=== PATIENT | female | born 1945 | race Caucasian/White ===

== ENCOUNTER 2018-01-06 08:52 | Emergency (ER) | payer MEDICARE, OTHER ==
[2018-01-06 09:05] VITALS: BP 111/67
--- NOTE | 2018-01-06 09:53 | XRAY Preliminary Report ---
Exam: XR FOOT 3 VIEW LT IMPRESSION: 1. Acute oblique nondisplaced fracture near the base of the third metatarsal. 2. 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 [facility] SITE ID: [id number]
--- NOTE | 2018-01-06 09:53 | XRAY Report ---
EXAM: LEFT FOOT RADIOGRAPHY EXAM DATE: 01/06/2018 09:27 AM. CLINICAL HISTORY: Left foot injury/pain. COMPARISON: None. TECHNIQUE: 3 nonweightbearing views. FINDINGS: Bones: The bones appear diffusely demineralized. There is an acute nondisplaced oblique fracture near the base of the third metatarsal. The remainder of visualized bones appear intact. Joints: No subluxation or dislocation. There is mild joint space narrowing and subchondral sclerosis at the first metatarsophalangeal joint. Soft Tissues: There is mild soft tissue swelling over the dorsum of the metatarsals. IMPRESSION: 1. Acute oblique nondisplaced fracture near the base of the third metatarsal. 2. 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 [facility] Referring Provider Line: [phone] SITE ID: [id number]
--- NOTE | 2018-01-06 10:01 | ED Physician Documentation ---
PD HPI LOWER EXT INJURY - Stated complaint Stated Complaint: FOOT PAIN - Chief complaint Chief Complaint: Ext Problem - History obtained from History obtained from: Patient, Family - History of Present Illness PD HPI LOW EXT INJURY LOCATION: Left, Foot Type of injury: Other (standing) Where injury occurred: Home Timing - onset: How many days ago (2) Timing - duration: Days (2) Timing - details: Abrupt onset, Still present Improved by: Rest, Immobilization Worsened by: Moving, Palpating Associated symptoms: Swelling, Discolored. No: Weakness Contributing factors: No: Anticoagulated Similar symptoms before: Diagnosis (broken foot) Recently seen: Not recently seen - Additional information Additional information: 72-year-old female who is traveling in a motor home with her was sitting at her table when she went to stand up she felt a sudden sharp severe pain in her midfoot. She has had trouble bearing weight on that foot she has had a similar fracture previously on the other foot. She does have known osteoporosis. Review of Systems Constitutional: denies: Fever Eyes: denies: Decreased vision Ears: denies: Ear pain Nose: denies: Congestion Respiratory: denies: Dyspnea, Cough Skin: denies: Rash Musculoskeletal: reports: Extremity pain, Pain with weight bearing. denies: Neck pain, Back pain Neurologic: denies: Generalized weakness, Focal weakness, Numbness PD PAST MEDICAL HISTORY - Past Medical History Past Medical History: Yes - Allergies Allergies/Adverse Reactions: Allergies Allergy/AdvReac Type Severity Reaction Status Date / Time No Known Drug Allergies Allergy Verified 01/06/18 09:02 - Social History Does the pt smoke?: No Smoking Status: Never smoker PD ED PE NORMAL - Vitals Vital signs reviewed: Yes (normal ) - General General: Alert and oriented X 3, No acute distress, Well developed/nourished - HEENT HEENT: Atraumatic, PERRL - Neck Neck: Supple, no meningeal sign - Respiratory Respiratory: No respiratory distress - Derm Derm: Normal color, Warm and dry, No rash - Extremities Extremities: No deformity, Other (There is ecchymosis to the dorsum of the left foot and point tenderness to the mid foot. There is no tenderness over the proximal 5th or the lateral malleolus. ) - Neuro Neuro: No motor deficit, No sensory deficit Eye Opening: Spontaneous Motor: Obeys Commands Verbal: Oriented GCS Score: 15 - Psych Psych: Normal mood, Normal affect Results - Vitals Vitals: Vital Signs - 24 hr 01/06/ 09:03 Temperature 36.0 C L Heart Rate 82 Respiratory 16 Rate Blood Pressure 111/67 O2 Saturation 100 Oxygen O2 Source Room air - Rads (name of study) left foot Radiology: Prelim report reviewed (Impression: 1. Acute oblique nondisplaced fracture near the base of the third metatarsal.2 mild degenerative osteoarthritis of the first metatarsal phalangeal joint.), EMP read indepedently , See rad report PD MEDICAL DECISION MAKING - ED course Complexity details: reviewed results, re-evaluated patient, considered differential, d/w patient, d/w family ED course: 72-year-old female with a broken metatarsal with minimal force has a history of osteoporosis and she has had similar fractures previously she is placed into a walking boot with a nondisplaced third metatarsal fracture. Departure - Departure Disposition: 01 Home, Self Care Clinical Impression: Metatarsal bone fracture Qualifiers: Encounter type: initial encounter Metatarsal bone: third Fracture type: closed Fracture alignment: nondisplaced Laterality: left Qualified Code(s): S92.335A - Nondisplaced fracture of third metatarsal bone, left foot, initial encounter for closed fracture Instructions: ED Fx Foot Follow-Up: [facility] [Provider Group]
== END 2018-01-06 10:13 | disposition home or self-care (01) ==
LOC: ED 08:52
DX: S92.335A Nondisplaced fracture of third metatarsal bone, left foot, initial encounter for closed fracture (principal); X58.XXXA Exposure to other specified factors, initial encounter
CPT/HCPCS: 99283